=== PATIENT | male | born 1960 | race American Indian/Alaskan Native ===

== ENCOUNTER 2019-05-06 10:57 | Emergency (ER) | payer BC ==
[~2019-05-06] VITALS: Ht 188 cm; Wt 126.0 kg
[2019-05-06 11:15] VITALS: BP 162/82
[2019-05-06] MEDS ORDERED: CHLO25CA10 PO (12:07)
== END 2019-05-06 12:12 | disposition home or self-care (01) ==
LOC: ER 10:58
DX: R51 Headache (principal); R11.0 Nausea; I10 Essential (primary) hypertension; F10.99 Alcohol use, unspecified with unspecified alcohol-induced disorder; Z85.46 Personal history of malignant neoplasm of prostate; Z79.899 Other long term (current) drug therapy; Y90.9 Presence of alcohol in blood, level not specified
CPT/HCPCS: 99283